=== PATIENT | male | born 1970 | race African-American/Black ===

== ENCOUNTER 2017-05-28 08:53 | Emergency (ER) | payer MEDICAID ==
[~2017-05-28] VITALS: Ht 172.7 cm; Wt 80.0 kg
[2017-05-28] MEDS ORDERED: VISCOUS LIDOCAINE 2% 15 ML UDC PO STA (09:25)
[2017-05-28] MEDS ORDERED: MAGNESIUM/ALUMINUM HYDROXIDE/SIMETHICONE 30ML UDC PO STA (09:25)
[2017-05-28] MEDS ORDERED: FAMOTIDINE 20MG/2ML VIAL IV STA (09:25)
[2017-05-28] MEDS ORDERED: ASPIRIN 325MG EC TABLET PO ONE (09:30)
[2017-05-28 09:52] LABS: BASOPHILS % 1.3 % (0.0-2.0); EOSINOPHILS % 2.3 % (0.0-5.0); HEMATOCRIT. 40.2 % (42.0-52.0); HEMOGLOBIN. 13.7 g/dL (14.0-18.0); LYMPHOCYTES % 30.4 % (20.0-50.0); MEAN CORPUSCULAR HEMOGLOBIN 33.9 pg (28.0-32.0); MEAN CORPUSCULAR VOLUME 99.8 fL (80.0-94.0); MEAN PLATELET VOLUME 7.9 fl (7.4-10.4); MONOCYTES % 6.1 % (2.0-8.0); NEUTROPHILS % 59.9 % (40.0-76.0); PLATELET 240 x1000/uL (130-400); RED BLOOD CELL COUNT 4.03 mill/uL (4.7-6.1); RED CELL DISTRIBUTION WIDTH 12.6 % (11.6-14.6)
[2017-05-28 10:02] LABS: CARBON DIOXIDE 27 mEq/L (21-32); CHLORIDE 109 mEq/L (98-107); TROPONIN I < 0.02 ng/mL (0.00-0.04)
[2017-05-28 11:36] VITALS: BP 138/66
== END 2017-05-28 14:15 | disposition home or self-care (01) ==
LOC: ER 09:18
DX: R07.9 Chest pain, unspecified (principal); R10.13 Epigastric pain; R00.2 Palpitations; F17.200 Nicotine dependence, unspecified, uncomplicated; E78.00 Pure hypercholesterolemia, unspecified
CPT/HCPCS: 36415; 71010; 80053; 83690; 84484; 85025; 93005; 96374; 99285; J3490